=== PATIENT | female | born 1985 | race Caucasian/White ===

== ENCOUNTER 2016-10-02 05:10 | Day surgery (SDC) | payer OTHER ==
[~2016-10-02] VITALS: Ht 167.6 cm; Wt 61.2 kg
--- NOTE | ~2016-10-02 | S ---
[facility] [address] [place] [address] SURGICAL PATH RPT PROCEDURE Name: BETTY CASTRO Room #: DEP [facility].#: [id number] Admission: 10/02/16 Date of : 81 Discharge: 10/02/16 Report #: [id number] Path Case #: [id number] PATHOLOGY REPORT COLLECTION DATE: 10/02/2016 RECEIVED DATE: 10/02/2016 SUBMITTING PHYS: Dr. Sean Roberson OTHER PHYS: Dr. Roger Palumbo SPECIMEN(S) RECEIVED: A.Scalene node left neck B.Left neck scalene node * * * * * * * * * * * * FINAL DIAGNOSIS: A. "Scalene node left neck," biopsy: - LYMPH NODE WITH CLASSIC HODGKIN LYMPHOMA, NODULAR SCLEROSIS SUBTYPE. (SEE COMMENT) B. "Left neck scalene node," biopsy: - LYMPH NODE WITH CLASSIC HODGKIN LYMPHOMA, NODULAR SCLEROSIS SUBTYPE. (SEE COMMENT) SYNOPTIC CANCER STAGING REPORT Specimen: Lymph node(s) Procedure: Biopsy Tumor Site: Lymph node(s) Site(s):Scalene node left neck Histologic Type: Nodular sclerosis classical Hodgkin lymphoma Immunophenotyping (Immunohistochemistry): Performed Methods(s) and results: Immunoshistochemistry; see comment COMMENT: Sections show fragments of lymph node with an effaced stephan architecture. From low power, there are broad fibrous bands showing a nodular architecture. Within the nodules, numerous large atypical lymphoid cells with open to vesicular chromatin, variably conspicuous to large eosinophilic macronucleoli and abundant focally cleared out cytoplasm. Lacunar cells and mummified cells are noted. Admixed lymphocytes are predominantly small, round, and mature appearing with condensed chromatin and scant cytoplasm. Mixed inflammatory cells including granulocytes (neutrophils and eosinophils), histiocytes and plasma cells are also noted. No geographic necrosis is identified. [address] [address] SURGICAL PATH RPT PROCEDURE Name: GLORIABETTY DOUGLASA Room #: DEP [facility].#: [id number] Admission: 10/02/16 Date of : 81 Discharge: 10/02/16 Report #: [id number] Path Case #: [id number] To further evaluate the large atypical cells and to identify cells in a tissue architectural context, properly controlled immunohistochemical stains are performed. (Block A1) CD30: highlights the large atypical cells in a membranous and Golgi type pattern CD15: large atypical cells reactive, also highlights granulocytes PAX-5: large atypical cells weakly reactive, also stains scattered small B cells CD3: highlights admixed T cells MUM-1: large atypical cells strongly reactive Alk-1: large atypical cells non-reactive Flow cytometric immunophenotypic analysis was performed at [facility]. The diagnosis is "markedly increased CD4/CD8 ratio; no immunophenotypic evidence of B cell non-Hodgkin lymphoma." There are 91.3% lymphocytes. Of the lymphocytes, there are 93.2% T cells with a CD4/CD8 ratio of 26.4 with no overt phenotypic abnormality. There are 5.3% polyclonal B cells and 0.3% NK cells. There is no immunophenotypic evidence of a B cell lymphoproliferative disorder. T lymphocytes show a virtual absence of CD8 positive cells with a markedly increased CD4:CD8 ratio without significant antigenic aberrancy. Please see separate flow cytometry report from [facility] ([id number]). Overall, the diagnosis is lymph node with classic Hodgkin lymphoma. It is nodular sclerosis subtype. Clinical and radiographic correlation is recommended. The case is co-reviewed with Dr. Priscila Morales. The case is discussed with Dr. Roger Palumbo on 10/06/16 at 3:00 PM. (CLW:; d/t: 10/06/16) PATHOLOGIST: Susi Luis M.D. REPORT ELECTRONICALLY SIGNED BY: Susi Luis M.D. DATE/TIME: 10/06/2016 21:42 * * * * * * * * * * * * GROSS PATHOLOGY: A. The specimen is received fresh labeled, "West, Betty, scalene node left neck," consists of a villa piece of tissue measuring 0.6 x 0.4 x 0.4 cm. A touch prep is prepared. (JOVAN:; d/t: 10/02/16) B. The specimen is received in formalin, labeled "West, Betty and left neck scalene node." Received is a 1.2 x 0.9 x 0.6 cm pink-villa and rubbery soft tissue. The specimen is bisected and entirely submitted in cassette B1. (TTL; 10/03/2016) FROZEN SECTION DIAGNOSIS: [address] [address] SURGICAL PATH RPT PROCEDURE Name: BETTY CASTRO Room #: DEP [facility]..#: [id number] Admission: 10/02/16 Date of : 81 Discharge: 10/02/16 Report #: [id number] Path Case #: [id number] Touch Prep: (Mary Malone M.D.) Lymph node (1), "scalene lymph node left neck": - Atypical, final deferred for flow studies and special stains. These findings are discussed with Dr. Roberson. A portion is submitted for permanent sections. (SHA:; d/t: 10/02/16) Testing performed by [email or web address] at [facility] [address] [place] [address] CLINICAL HISTORY: None Provided INITIAL CPT CODE(S): A; 15468, 75367, 44662, 45649, 95590, 92207, 09796, 96315 B; 03714 Professional services performed by [facility] at [facility] [address] [place] [address] Technical services performed by [email or web address] at [address] [place] [address], [facility] [address] [address]. [facility] [address] [place] [address] PHONE: [phone] DIRECTOR: Kartik Harmon M.D. * * * END OF REPORT * * *
--- NOTE | ~2016-10-02 | S ---
[facility] [address] [place] [address] SURGICAL PATH RPT PROCEDURE Name: BETTY CASTRO Room #: DEP [facility]..#: [id number] Admission: 10/02/16 Date of : 81 Discharge: 10/02/16 Report #: [id number] Path Case #: [id number] PATHOLOGY REPORT COLLECTION DATE: 10/02/2016 RECEIVED DATE: 10/02/2016 SUBMITTING PHYS: Dr. Jay Lynch OTHER PHYS: Dr. Roger Roberson SPECIMEN(S) RECEIVED: A.Bone marrow, clot B.Bone marrow, biopsy C.Bone marrow, aspirate smears D.Peripheral smear * * * * * * * * * * * * FINAL DIAGNOSIS: Bone marrow aspirate, biopsy, cell clot and peripheral blood: - Peripheral blood with mild microcytic anemia. - Normocellular bone marrow with trilineage hematopoiesis, no significant dyspoiesis and no evidence of lymphoma or acute leukemia. (See comment) COMMENT: Overall the bone marrow is normocellular for the patient's age with trilineage hematopoiesis, no significant dyspoiesis and no evidence of the patient's concurrently diagnosed nodular sclerosis classical Hodgkin lymphoma ([id number]) or acute leukemia. The dyspoiesis is minimal and does not meet the morphologic criteria for myelodysplasia. Correlation with clinical history, additional laboratory data and cytogenetics is recommended. The case is discussed with Dr. Roger Palumbo on 10/06/16 at approximately 3:00 PM. (CLW:princess; d/t: 10/06/2016) PATHOLOGIST: Susi Luis M.D. REPORT ELECTRONICALLY SIGNED BY: Susi Luis M.D. DATE/TIME: 10/06/2016 21:43 * * * * * * * * * * * * MICROSCOPIC DESCRIPTION: CBC DATA (09/1216): WBC: 4,200 /uL; RBC: 4.39; Hgb: 11.3 g/dL; Hct: 34.5%; MCV: 78.5fL; MCH: 25.7 pg; MCHC: 32.7%; RDW: 16.4%; platelets: 272,000/uL. Manual white blood cell differential: segs - 71%, bands - 1%, lymphs - 10%, monos - 15%, eos - 2%, and baso - 1%. [address] [address] SURGICAL PATH RPT PROCEDURE Name: GLORIABETTY ODONNELL [id number] Admission: 10/02/16 Date of : 81 Discharge: 10/02/16 Report #: [id number] Path Case #: [id number] Peripheral blood smear: Cytomorphological examination of the Gary's-stained peripheral blood smear confirms the provided data. Red blood cells show mild microcytic anemia with no significant anisopoikilocytosis. White blood cells are predominantly segmented neutrophils and are without significant dyspoiesis or significant left shift. Lymphocytes are predominantly small, round and mature-appearing with condensed chromatin and scant cytoplasm with admixed large granular lymphocytes. There is a mild relative mature monocytosis. Platelets are adequate in number and mainly normal in morphology with rare larger platelets noted. Aspirate smears: Cytomorphological examination of the Gary's-stained aspirate smear shows spicules present. The overall cellularity is approximately 60%. The myeloid to erythroid ratio is 2:1. Full myeloid maturation is identified and is without significant dyspoiesis. Erythroid maturation is mildly dyserythropoietic with occasional irregular nuclear contours and rare binucleate forms. In a 500 cell differential, there are 1% blasts (no Brenda rods are seen), 62% more differentiated myeloids, 26% erythroid precursors, 10% lymphocytes and 1% plasma cells. Megakaryocytes are proportional in number and both normal and abnormal in morphology with variable sizes and nuclear abnormalities. No lymphoid aggregates or markedly atypical lymphoid cells are seen. Plasma cells are without atypia. Iron stain of the aspirate smear shows trace stainable iron with spicules present. No ringed sideroblasts are identified. Bone marrow core biopsy and cell clot: The decalcified bone marrow core biopsy is adequate. The bone marrow is normocellular with an overall cellularity of approximately 50-60%. The myeloid to erythroid ratio is 2-3:1. Myeloid maturation is without significant dyspoiesis. Erythroid maturation is mildly dyserythropoietic. Megakaryocytes are normal in number and both normal and abnormal in morphology. No lymphoid aggregates or markedly atypical lymphoid cells (including Lex-Shashi cells) are identified. Bony trabeculae and blood vessels are unremarkable. The cell clot has spicules present that are similar in cellularity and differential morphology as previously described. Again, no markedly atypical lymphoid cells (including Lex-Shashi cells) are identified. Iron stain of the cell clot (block A1) shows 1/4+ iron positivity with spicules present. Flow cytometry: Flow cytometric immunophenotypic analysis was performed at [facility]. The diagnosis is "no diagnostic immunophenotypic abnormalities detected". There are 4.2% lymphocytes. Of the lymphocytes, there are 79.2% T cells with a CD4:CD8 ratio of 1.0 and no aberrant T cell antigen expression. There are 7.1% polyclonal B cells. There are 1.0% CD34 positive cells (blasts) and 1.9% precursor B cells. No immunophenotypic [facility] [address] [address] SURGICAL PATH RPT PROCEDURE Name: GLORIABETTY Room #: DEP [facility]..#: [id number] Admission: 10/02/16 Date of : 81 Discharge: 10/02/16 Report #: [id number] Path Case #: [id number] evidence of a lymphoproliferative disorder, acute leukemia, increase in blasts or increase in plasma cells is identified. Please see separate flow cytometry report from [facility] ([id number]). Cytogenetics: Cytogenetic chromosomal analysis is pending at [facility] ([id number]). (CLW:csd; d/t: 10/06/2016) GROSS PATHOLOGY: A. Received in formalin labeled "Betty Castro and BM aspirate (clot)," is blood coagulum, measuring 1.8 x 1.3 x 0.3 cm in aggregate dimensions. The specimen is submitted entirely in cassette A1. B. Received in formalin labeled "Betty Castro and BM biopsy," is a single needle core of villa bone, measuring 1.7 cm in length and 0.2 cm in diameter. The specimen is submitted entirely in cassette B1, following decalcification. (TTL; 10/03/2016) CLINICAL HISTORY: Lymphoma. 31-year-old woman with a concurrently diagnosed classic Hodgkin lymphoma. This is a staging marrow. INITIAL CPT CODE(S): A; 24495, 47684 B; 35430, 25698 C; 60833, 29121 D; 95038 Professional services performed by [facility] at [facility] [address], [place] [address] Technical services performed by [facility] at [address] [place] [address], [address], [place] [address]. [facility] [address] [place] [address] PHONE: [phone] DIRECTOR: Kartik Harmon M.D. * * * END OF REPORT * * *
--- NOTE | ~2016-10-02 | O ---
[facility] [place] [address] [place] [address] OPERATIVE REPORT Name: CESAR CASTRO Room #: DEP [facility] M.R.#: [id number] Admission: 10/02/16 Attend Phys: Sean Roberson MD Discharge: 10/02/16 Date of : 81 Report #: [id number] THIS REPORT FOR: //name// CC: [facility] physician/PCP Sean Roberson DATE OF SERVICE: 10/02/2016 PREOPERATIVE DIAGNOSIS: Mediastinal and cervical diagnosis of suspect lymphoma. POSTOPERATIVE DIAGNOSIS: Mediastinal and cervical diagnosis of suspect lymphoma. SURGEON: Sean Roberson M.D. FULL FASHIONED GARMENT KNITTER: Ethan. OPERATION PERFORMED: Left cervical node biopsy and Port-A-Cath implant. ANESTHESIA: General. INDICATIONS: The patient is a 31-year-old with a year long history of fever and malaise. Recently, the patient noticed some cervical swelling and CAT scan showed extensive cervical and mediastinal adenopathy. FINDINGS AND TECHNIQUE: After general anesthesia was established, a left supraclavicular incision was made to expose cervical lymph nodes to one large node and piece of a second large node were excised and given to pathology or their consideration, touch prep was consistent with lymphoma, but definitive diagnosis will be deferred until cell block and permanent pathology is available. Hemostasis was ascertained in this wound and then the wound was closed in layers. Port-A-Cath implant was performed. An incision was made below the left clavicle and extended to prepectoral fascia. The brachiocephalic vein was found within the deltopectoral groove and this was exploited to pass a [id number]. Fluoroscopic guidance was used to ascertain good position of the catheter. The catheter was secured in place with silk ties on the brachiocephalic vein and then it was connected to the reservoir, flushed and irrigated with heparin. The reservoir was carried to prepectoral fascia with interrupted Prolene suture. Hemostasis was ascertained in all areas. A final look with the fluoroscope demonstrated a position of the catheter and when hemostasis was satisfactory, [facility] [address] [place] [address] OPERATIVE REPORT Name: CESAR CASTRO Room #: DEP [facility].#: [id number] Admission: 10/02/16 Attend Phys: Sean Roberson MD Discharge: 10/02/16 Date of : 81 Report #: [id number] the wound was closed in layers. The patient was taken to the recovery area in good condition, having tolerated the procedure well. <ELECTRONICALLY SIGNED> By: Sean Roberson MD 10/13/16 1224 1122 1147 Sean Roberson MD /nt
[~2016-10-02 05:10] MED LIST: CIPRO500 MG PO; COD LIVER OIL1 EACH PO; IRON325 PO; PEPCID20 MG PO; PREDNISONE 20 M20 MG PO; PROBIOTIC1 EAC1 PO; VITAMINC500 PO
[2016-10-02 13:14] VITALS: BP 95/63
[2016-10-02 16:30] VITALS: BP 186/89
[2016-10-02 17:05] VITALS: BP 95/63
== END 2016-10-02 18:25 | disposition home or self-care (01) ==
LOC: OR 05:10 → TBA 05:10 → OR 08:49
DX: D50.9 Iron deficiency anemia, unspecified (principal); F17.210 Nicotine dependence, cigarettes, uncomplicated; Z98.890 Other specified postprocedural states

== ENCOUNTER 2017-02-03 09:16 | Emergency (ER) | payer OTHER ==
[~2017-02-03] VITALS: Ht 167.6 cm; Wt 59.0 kg
[2017-02-03] MEDS ORDERED: BACTRIM DS TAB1 EACH PO (09:26)
[2017-02-03] MEDS ORDERED: ONDANSETRON HCL8 M2 PO (09:27)
[2017-02-03 10:00] LABS: HEMOGLOBIN 11.6 gm/dL (12.0-15.0); MCV 87.1 fL (80.0-100.0)
[2017-02-03 10:02] LABS: HEMATOCRIT 33.3 % (37.0-47.0); MCH 30.4 pg (26.0-34.0); MCHC 34.9 g/dL (28.0-37.0); PLATELET COUNT 195 thou/uL (150-400); RBC 3.82 mil/uL (4.20-5.00); RDW 16.1 % (10.5-14.5)
[2017-02-03 10:05] LABS: MANUAL DIFF YES
[2017-02-03 10:07] LABS: WBC 1.9 thou/uL (4.0-11.0)
[2017-02-03 10:11] LABS: CALCIUM 9.3 mg/dL (8.5-10.1); CREATININE 0.9 mg/dL (0.6-1.0); POTASSIUM 3.8 mmol/L (3.5-5.1)
[2017-02-03 10:15] LABS: ALBUMIN 3.9 g/dL (3.4-5.0); TOTAL BILIRUBIN 0.3 mg/dL (<0.1-1.0); TOTAL PROTEIN 6.8 g/dL (6.4-8.2)
[2017-02-03 10:46] LABS: ABSOLUTE NEUTROPHILS 0.7 thou/uL (1.4-8.2); PLATELET ESTIMATE NORMAL; TOTAL CELL COUNT 100
[2017-02-03] MEDS ORDERED: ZOFRAN ODT8 MG PO (11:06)
== END 2017-02-03 11:39 | disposition home or self-care (01) ==
LOC: ER 09:16
PROVIDERS: Physician Assistant
DX: D70.9 Neutropenia, unspecified (principal); C85.90 Non-Hodgkin lymphoma, unspecified, unspecified site; R11.2 Nausea with vomiting, unspecified; F17.210 Nicotine dependence, cigarettes, uncomplicated; Z86.2 Personal history of diseases of the blood and blood-forming organs and certain disorders involving the immune mechanism; Z98.890 Other specified postprocedural states

== ENCOUNTER → 2017-06-29 | Outpatient (CLI) | payer OTHER ==
[~2017-06-29] VITALS: Ht 167.6 cm; Wt 59.0 kg
[~2017-06-29] MED LIST changes: +BACTRIM DS TAB1 EACH PO; +LIORESAL 10 MG10 MG PO; +ONDANSETRON HCL8 M2 PO; +TYLENOL EXTRA500 MG PO; +ZOFRAN ODT8 MG PO
[2017-06-29 09:57] VITALS: BP 106/56
[2017-06-29 10:21] LABS: HEMATOCRIT 41.1 % (37.0-47.0); HEMOGLOBIN 13.7 gm/dL (12.0-15.0); MCH 30.9 pg (26.0-34.0); MCHC 33.3 g/dL (28.0-37.0); MCV 92.9 fL (80.0-100.0); RBC 4.43 mil/uL (4.20-5.00); RDW 12.1 % (10.5-14.5); WBC 3.7 thou/uL (4.0-11.0)
[2017-06-29 10:32] LABS: PROTIME 9.8 Seconds (9.3-11.4)
[2017-06-29 10:33] LABS: CALCIUM 8.7 mg/dL (8.5-10.1); CREATININE 0.8 mg/dL (0.6-1.0); POTASSIUM 3.8 mmol/L (3.5-5.1)
== END | disposition home or self-care (01) ==
LOC: OPONC 06-19 10:11 → SPEC 09:11 → OPONC 13:42
PROVIDERS: Radiology Diagnostic Radiology
DX: Z45.2 Encounter for adjustment and management of vascular access device (principal); C85.90 Non-Hodgkin lymphoma, unspecified, unspecified site

== ENCOUNTER 2017-11-03 08:32 | Emergency (ER) | payer OTHER ==
[~2017-11-03] VITALS: Ht 167.6 cm; Wt 63.5 kg
[2017-11-03] MEDS ORDERED: PREDNISONE 20 M20 MG PO (10:06)
[2017-11-03] MEDS ORDERED: VENTOLIN HFA 1818 GM INH (10:06)
[2017-11-03 10:22] VITALS: BP 104/65
== END 2017-11-03 10:22 | disposition home or self-care (01) ==
LOC: ER 08:32
DX: J40 Bronchitis, not specified as acute or chronic (principal); F17.210 Nicotine dependence, cigarettes, uncomplicated; Z86.2 Personal history of diseases of the blood and blood-forming organs and certain disorders involving the immune mechanism

== ENCOUNTER 2020-10-10 13:19 | Emergency (ER) | payer BC, OTHER ==
[~2020-10-10] VITALS: Ht 167.6 cm; Wt 65.8 kg
[~2020-10-10 13:19] MED LIST changes: +VENTOLIN HFA 1818 GM INH
[2020-10-10 13:46] LABS: URINE BILIRUBIN NEGATIVE (Negative); URINE BLOOD NEGATIVE (Negative); URINE CLARITY CLEAR; URINE COLOR YELLOW; URINE GLUCOSE-RANDOM* NEGATIVE (Negative); URINE KETONES NEGATIVE (Negative); URINE PROTEIN (DIPSTICK) NEGATIVE (Negative); URINE UROBILINOGEN 0.2 E.U./dl (0.2-1.0)
[2020-10-10 13:49] LABS: URINE LEUKOCYTES-REFLEX 1+ (Negative); URINE NITRITE-REFLEX POSITIVE (Negative)
[2020-10-10 13:55] LABS: HEMATOCRIT 40.6 % (37.0-47.0); HEMOGLOBIN 13.2 gm/dL (12.0-15.0); MCH 29.8 pg (26.0-34.0); MCHC 32.5 g/dL (28.0-37.0); MCV 91.6 fL (80.0-100.0); RBC 4.43 mil/uL (4.20-5.00); RDW 14.4 % (10.5-14.5); WBC 6.6 thou/uL (4.0-11.0)
[2020-10-10 13:59] LABS: CASTS None Seen /LPF (None Seen); CRYSTALS None Seen /LPF (None Seen); SQUAMOUS 0-3 Few /LPF (0-3)
[2020-10-10 14:01] LABS: BACTERIA-REFLEX >30 Many /HPF (None Seen); URINE RBC None Seen /HPF (0-2); URINE WBC-REFLEX 0-5 Rare /HPF (0-5)
[2020-10-10 14:02] LABS: CALCIUM 9.3 mg/dL (8.5-10.1); CREATININE 0.8 mg/dL (0.6-1.0)
[2020-10-10 14:08] LABS: ALBUMIN 3.8 g/dL (3.4-5.0); TOTAL BILIRUBIN 0.2 mg/dL (0.2-1.0)
[2020-10-10] MEDS ORDERED: KEFLEX500 M1 PO (15:39)
[2020-10-10 16:05] VITALS: BP 101/62
== END 2020-10-10 16:06 | disposition home or self-care (01) ==
LOC: ER 13:19
PROVIDERS: Emergency Medicine
DX: N39.0 Urinary tract infection, site not specified (principal); K62.5 Hemorrhage of anus and rectum; F17.210 Nicotine dependence, cigarettes, uncomplicated; Z98.890 Other specified postprocedural states